=== PATIENT | male | born 1980 | race American Indian/Alaskan Native ===

== ENCOUNTER 2019-06-03 16:20 | Emergency (ER) | payer SELFPAY ==
[2019-06-03 16:44] VITALS: BP 111/71
[2019-06-03] MEDS ORDERED: BOOSTRIX IM ONE (16:45)
--- NOTE | 2019-06-03 16:48 | Event Note ---
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 Further treatment and workup at subsequent clinical providers discretion. Patient/guardian urged not to elope from the ED as their condition may be serious if not clinically assessed and managed. Initial orders include: tetanus antibiotics
--- NOTE | 2019-06-03 19:57 | Emergency Department Report ---
ED General Adult HPI - General Chief complaint: Laceration/Recheck/Suture Stated complaint: LIP INJURY Time Seen by Provider: 06/03/19 16:43 Source: patient Mode of arrival: Ambulatory Limitations: No Limitations - History of Present Illness Initial comments: Patient is a 39-year-old -[place] male with no past medical history who presents to the ED with complaint of acute onset persistent painful bleeding upper lip puncture wound that he sustained at work about 10 hours ago. Patient states that he was working on a machine which slipped as he pulled it and hit him in the mouth causing a puncture wound in the upper lip which has continued to bleed on and off since the incident occurred 10 hours ago. Patient denies loss of consciousness, headache, dental injury, dizziness, nausea, vomiting, neck pain, change in vision or chest pain. MD Complaint: upper lip puncture wound -: Sudden, hour(s) (10) Location: face, mouth (mouth - upper lip) Radiation: non-radiation Severity scale (0 -10): 3 Quality: aching, dull Consistency: constant Improves with: none Worsens with: none Associated Symptoms: denies other symptoms. denies: confusion, chest pain, cough, diaphoresis, fever/chills, headaches, loss of appetite, malaise, nausea/vomiting, shortness of breath Treatments Prior to Arrival: none - Related Data Previous Rx's Medication Instructions Recorded Last Taken Type Cyclobenzaprine HCl [Flexeril 5 MG 5 mg PO TID #30 tab 07/01/15 Unknown Rx TAB] Ibuprofen [Motrin] 800 mg PO Q8HR #30 tablet 07/01/15 Unknown Rx traMADol [Ultram 50 MG tab] 50 mg PO Q6HR PRN #20 tablet 07/01/15 Unknown Rx Ibuprofen [Motrin] 600 mg PO Q8H PRN #20 tablet 06/03/19 Unknown Rx cephALEXin [Keflex] 500 mg PO Q8HR #30 cap 06/03/19 Unknown Rx Allergies Allergy/AdvReac Type Severity Reaction Status Date / Time No Known Allergies Allergy Verified 07/01/15 09:56 ED Review of Systems ROS: Stated complaint: LIP INJURY Other details as noted in HPI Constitutional: denies: chills, fever Eyes: denies: eye pain, eye discharge, vision change ENT: other (Upper lip bleeding puncture wound). denies: ear pain, throat pain Respiratory: denies: cough, shortness of breath, wheezing Cardiovascular: denies: chest pain, palpitations Endocrine: no symptoms reported Gastrointestinal: denies: abdominal pain, nausea, diarrhea Genitourinary: denies: urgency, dysuria Musculoskeletal: denies: back pain, joint swelling, arthralgia Skin: other (Upper lip puncture wound). denies: rash, lesions Neurological: denies: headache, weakness, paresthesias Psychiatric: denies: anxiety, depression Hematological/Lymphatic: denies: easy bleeding, easy bruising ED Past Medical Hx - Past Medical History Previous Medical History?: No - Surgical History Past Surgical History?: No - Social History Smoking Status: Current Every Day Smoker Substance Use Type: Alcohol - Medications Home Medications: Home Medications Medication Instructions Recorded Confirmed Last Taken Type Cyclobenzaprine HCl [Flexeril 5 MG 5 mg PO TID #30 tab 07/01/15 Unknown Rx TAB] Ibuprofen [Motrin] 800 mg PO Q8HR #30 tablet 07/01/15 Unknown Rx traMADol [Ultram 50 MG tab] 50 mg PO Q6HR PRN #20 tablet 07/01/15 Unknown Rx Ibuprofen [Motrin] 600 mg PO Q8H PRN #20 tablet 06/03/19 Unknown Rx cephALEXin [Keflex] 500 mg PO Q8HR #30 cap 06/03/19 Unknown Rx ED Physical Exam - General Limitations: No Limitations General appearance: alert, in no apparent distress - Head Head exam: Present: atraumatic, normocephalic, normal inspection - Eye Eye exam: Present: normal appearance, PERRL, EOMI Pupils: Present: normal accommodation - ENT ENT exam: Present: normal orophraynx, mucous membranes moist, TM's normal bilaterally, normal external ear exam, other (Upper lip small puncture wound) - Neck Neck exam: Present: normal inspection, full ROM. Absent: tenderness, meningismus, lymphadenopathy, thyromegaly - Respiratory Respiratory exam: Present: normal lung sounds bilaterally. Absent: respiratory distress, wheezes, rhonchi, stridor, chest wall tenderness, accessory muscle use, decreased breath sounds, prolonged expiratory - Cardiovascular Cardiovascular Exam: Present: regular rate, normal rhythm, normal heart sounds. Absent: systolic murmur, diastolic murmur, rubs, gallop - GI/Abdominal GI/Abdominal exam: Present: soft, normal bowel sounds. Absent: tenderness, guarding, hyperactive bowel sounds, hypoactive bowel sounds, organomegaly - Rectal Rectal exam: Present: deferred - Extremities Exam Extremities exam: Present: normal inspection, full ROM, normal capillary refill - Back Exam Back exam: Present: normal inspection, full ROM. Absent: tenderness, CVA tenderness (R), CVA tenderness (L), muscle spasm, paraspinal tenderness - Neurological Exam Neurological exam: Present: alert, oriented X3, CN II-XII intact, normal gait, reflexes normal - Psychiatric Psychiatric exam: Present: normal affect, normal mood - Skin Skin exam: Present: warm, dry, intact, normal color, other (Small puncture wound on upper lip). Absent: rash ED Course Vital Signs 06/03/19 16:42 Temperature 98.7 F Pulse Rate 71 Respiratory 16 Rate Blood Pressure 111/71 O2 Sat by Pulse 98 Oximetry - Reevaluation(s) Reevaluation #1: 06/03/19 19:59 This is a 39 yo AA male with no past medical history who presents to the ED with c/o acute onset persistent painful puncture wound on upper lip 10 hours ago. In the ED patient is alert and oriented x 3 and is in no acute distress. Patient was treated in the ED with tetanus Vaccine and discharged home on medications. Patient advised return to the ED immediately if symptoms get worse. Patient was discharged home on prophylactic antibiotics and pain medications. ED Medical Decision Making - Medical Decision Making This is a 39 yo AA male with no past medical history who presents to the ED with c/o acute onset persistent painful puncture wound on upper lip 10 hours ago. In the ED patient is alert and oriented x 3 and is in no acute distress. Patient was treated in the ED with tetanus Vaccine and discharged home on medications. Patient advised return to the ED immediately if symptoms get worse. Patient was discharged home on prophylactic antibiotics and pain medications. - Differential Diagnosis Puncture wound; laceration of lip, facial contusion Critical care attestation.: If time is entered above; I have spent that time in minutes in the direct care of this critically ill patient, excluding procedure time. ED Disposition Clinical Impression: Puncture wound of lip without foreign body Qualifiers: Encounter type: initial encounter Qualified Code(s): S01.531A - Puncture wound without foreign body of lip, initial encounter Contusion of face Qualifiers: Encounter type: initial encounter Qualified Code(s): S00.83XA - Contusion of other part of head, initial encounter Disposition: TO HOME OR SELFCARE Is pt being admited?: No Does the pt Need Aspirin: No Condition: Stable Instructions: Puncture Wound (ED), Contusion in Adults (ED) Additional Instructions: Take medication with food, drink plenty of fluids and follow-up with your primary care physician in 7-10 days for reevaluation. Return to the ED immediately if symptoms get worse. Prescriptions: cephALEXin [Keflex] 500 mg PO Q8HR #30 cap Ibuprofen [Motrin] 600 mg PO Q8H PRN #20 tablet PRN Reason: Pain Referrals: [facility] [Outside] - 3-5 Days Time of Disposition: 19:54 Print Language: [id number]
== END 2019-06-03 20:39 | disposition home or self-care (01) ==
LOC: ED 16:20
DX: S00.83XA Contusion of other part of head, initial encounter (principal); F17.200 Nicotine dependence, unspecified, uncomplicated; W22.8XXA Striking against or struck by other objects, initial encounter; Y93.89 Activity, other specified; Y92.89 Other specified places as the place of occurrence of the external cause; Y99.8 Other external cause status
CPT/HCPCS: 90471; 90715

== ENCOUNTER → 2021-10-17 | Emergency (ER) | payer SELFPAY ==
[2021-10-17 17:37] VITALS: BP 125/78
== END ==
LOC: ED 17:18
DX: R05.9 Cough, unspecified (principal); Z53.21 Procedure and treatment not carried out due to patient leaving prior to being seen by health care provider

== ENCOUNTER 2021-10-21 13:12 | Emergency (ER) | payer SELFPAY | END 2021-10-22 01:54 | disposition left against medical advice (07) | LOC: ED 13:12 | DX: R06.02 Shortness of breath (principal); Z53.21 Procedure and treatment not carried out due to patient leaving prior to being seen by health care provider ==